=== PATIENT | female | born 1965 | race Caucasian/White ===

== ENCOUNTER 2016-04-05 13:34 | Inpatient (IN) | payer SELFPAY ==
[~2016-04-05] VITALS: Ht 160 cm; Wt 67.2 kg
[2016-04-05] MEDS ORDERED: ONDANSETRON 4 MG VIAL ONE (17:16)
[2016-04-05] MEDS ORDERED: SODIUM CHLORIDE 0.9% 1,000 ML ONE (17:16)
[2016-04-05] MEDS ORDERED: DILAUDID 1 MG/ML AMP ONE ×2 (17:16→18:45)
[2016-04-05] MEDS ORDERED: PIPER/TAZO 3.375 GM PYXIS ONE (20:10)
[2016-04-05] MEDS ORDERED: SODIUM CHLORIDE 0.9% 100 ML IV ONE (20:10)
[2016-04-05] MEDS ORDERED: ACETAMINOPHEN 325 MG TAB PO PRN (20:25)
[2016-04-05] MEDS ORDERED: MAG HYDROX 30 ML UDC PO PRN (20:25)
[2016-04-05] MEDS ORDERED: SALINE FLUSH 10 ML FLUSH PRN (20:25)
[2016-04-05] MEDS ORDERED: ALU/MAG/SIM 30 ML UDC PO PRN (20:25)
[2016-04-05] MEDS ORDERED: BISACODYL EC 5 MG TAB PO PRN (20:25)
[2016-04-05] MEDS ORDERED: BISACODYL 10 MG SUPP RECTAL PRN (20:25)
[2016-04-05 21:41] VITALS: Ht 160 cm; Wt 67.2 kg
[2016-04-05 21:45] VITALS: BP_SYST 142; BP_SYST 144; RESP 20; TEMP 98.4
[2016-04-05] MEDS ORDERED: PHARMACY TO DOSE VANCOMYCIN IV SCH (21:50)
[2016-04-05 22:25] VITALS: RESP 16
[2016-04-05] MEDS: CEFTRIAXONE 1 GM in SODIUM CHLORIDE 0.9% 50 ML IV SCH (22:36)
[2016-04-05] MEDS: METOPROLOL XL 50 MG TAB PO SCH (22:36)
[2016-04-05] MEDS: MORPHINE 2 MG/ML SYR IV PRN (22:40)
[2016-04-05] MEDS: VANCOMYCIN 1,250 MG in SODIUM CHLORIDE 0.9% 250 ML IV SCH (23:31)
[2016-04-06] VITALS (8 sets, daily range): BP systolic 115–152; RESP 12–20; TEMP 97.9–98.6
[2016-04-06] MEDS: SODIUM CHLORIDE 0.9% FLUSH BAG 500 ML IV SCH (05:09)
[2016-04-06] MEDS: MORPHINE 2 MG/ML SYR IV PRN ×2 (05:17→11:21)
[2016-04-06] MEDS: SODIUM CHLORIDE 0.9% 1,000 ML IV SCH ×2 (05:18→20:52)
[2016-04-06] MEDS: SALINE FLUSH 10 ML FLUSH SCH ×2 (08:00→20:00)
[2016-04-06] MEDS: METOPROLOL XL 50 MG TAB PO SCH ×2 (08:52→20:51)
[2016-04-06] MEDS: CEFTRIAXONE 1 GM in SODIUM CHLORIDE 0.9% 50 ML IV SCH (08:52)
[2016-04-06] MEDS: ASPIRIN 81 MG CHEW TAB PO SCH (08:52)
[2016-04-06] MEDS: VANCOMYCIN 1,250 MG in SODIUM CHLORIDE 0.9% 250 ML IV SCH ×2 (11:17→22:28)
[2016-04-06] MEDS: DILAUDID 1 MG/ML AMP IV PRN ×3 (14:19→20:51)
[2016-04-06] MEDS ORDERED: KCL CR 20 MEQ TAB PO ONE (16:50)
[2016-04-06] MEDS: ONDANSETRON 4 MG VIAL IV PRN (17:49)
[2016-04-06] MEDS: LORATADINE 10 MG TAB PO SCH (20:51)
[2016-04-06] MEDS: PRAVASTATIN 40 MG TAB PO SCH (20:51)
[2016-04-07] VITALS (8 sets, daily range): BP systolic 127–166; RESP 16–20; TEMP 97.3–98.8
[2016-04-07] MEDS: DILAUDID 1 MG/ML AMP IV PRN ×5 (00:13→21:25)
[2016-04-07] MEDS: CEFEPIME 500 MG in SODIUM CHLORIDE 0.9% 100 ML IV SCH ×4 (01:57→23:38)
[2016-04-07] MEDS: SODIUM CHLORIDE 0.9% FLUSH BAG 500 ML IV SCH (05:18)
[2016-04-07] MEDS: ONDANSETRON 4 MG VIAL IV PRN ×2 (06:20→13:23)
[2016-04-07] MEDS: SALINE FLUSH 10 ML FLUSH SCH ×2 (08:00→20:00)
[2016-04-07] MEDS: METOPROLOL XL 50 MG TAB PO SCH ×2 (09:00→21:20)
[2016-04-07] MEDS: ASPIRIN 81 MG CHEW TAB PO SCH (09:00)
[2016-04-07] MEDS: PROMETHAZINE 25 MG/ML VIAL IV PRN ×2 (09:26→17:05)
[2016-04-07] MEDS: VANCOMYCIN 1,250 MG in SODIUM CHLORIDE 0.9% 250 ML IV SCH (11:15)
[2016-04-07] MEDS ORDERED: HALOPERIDOL 5 MG/ML VIAL IM ONE (11:15)
[2016-04-07] MEDS ORDERED: LORAZEPAM 2 MG/ML VIAL IV ONE (11:15)
[2016-04-07] MEDS ORDERED: LIDOCAINE 1% INFILTRATE ONE (12:15)
[2016-04-07] MEDS ORDERED: DILAUDID 1 MG/ML AMP IV STA (12:30)
[2016-04-07] MEDS ORDERED: LIDOCAINE 1% 20ML INFILTRATE ONE (12:40)
[2016-04-07] MEDS: SODIUM CHLORIDE 0.9% 1,000 ML IV SCH (13:23)
[2016-04-07] MEDS: LINEZOLID 600 MG TAB PO SCH ×2 (13:23→21:20)
[2016-04-07] MEDS ORDERED: MAGNEVIST 15ML IV ONE (15:49)
[2016-04-07] MEDS: LORATADINE 10 MG TAB PO SCH (21:19)
[2016-04-07] MEDS: PRAVASTATIN 40 MG TAB PO SCH (21:20)
[2016-04-08] MEDS: DILAUDID 1 MG/ML AMP IV PRN ×2 (00:50→05:12)
[2016-04-08] MEDS: PROMETHAZINE 25 MG/ML VIAL IV PRN (00:51)
[2016-04-08 03:21] VITALS: BP_SYST 140; TEMP 98
[2016-04-08 03:22] VITALS: RESP 20; TEMP 99
[2016-04-08] MEDS: SODIUM CHLORIDE 0.9% 1,000 ML IV SCH (05:16)
[2016-04-08] MEDS: SODIUM CHLORIDE 0.9% FLUSH BAG 500 ML IV SCH (05:18)
[2016-04-08 07:29] VITALS: BP_SYST 157; RESP 18; TEMP 98.3
[2016-04-08] MEDS: SALINE FLUSH 10 ML FLUSH SCH (08:00)
[2016-04-08] MEDS: ONDANSETRON 4 MG VIAL IV PRN (08:10)
[2016-04-08] MEDS ORDERED: MISSING DOSE XX ONE (09:10)
== END 2016-04-08 09:31 | disposition left against medical advice (07) | DRG 558 ==
LOC: ER 13:34 → EMR 20:24 → 3NT 22:02
PROVIDERS: ADMIT Internal Medicine; ATTEND Internal Medicine
PROC: 0H95XZZ Drainage of Chest Skin, External Approach (ICD-10-PCS; principal; 2016-04-07)
CPT/HCPCS: 71010; 73700; 73723; 80053; 85025; 87071; 87077; 87186; 94799; 96361; 96365; 96375; 96376; 99232; 99233; 99238

== ENCOUNTER 2016-04-15 14:09 | Emergency (ER) | payer SELFPAY ==
[2016-04-15] MEDS ORDERED: ONDANSETRON 4 MG VIAL ONE (16:36)
[2016-04-15] MEDS ORDERED: SODIUM CHLORIDE 0.9% 1,000 ML ONE (16:36)
[2016-04-15] MEDS ORDERED: SODIUM CHLORIDE 0.9% 50 ML IV ONE (17:41)
[2016-04-15] MEDS ORDERED: PROMETHAZINE 25 MG/ML VIAL ONE (17:41)
[2016-04-15] MEDS ORDERED: MORPHINE 4 MG/ML SYR ONE (18:34)
[2016-04-15] MEDS ORDERED: DICYCLOMINE 20MG/2ML VIAL IM ONE (19:38)
== END 2016-04-15 21:54 | disposition home or self-care (01) ==
LOC: ER 14:09
CPT/HCPCS: 36415; 74176; 80053; 81001; 82553; 83690; 83880; 84484; 85025; 93005; 96361; 96372; 96374; 96375